=== PATIENT | male | born 1940 | race Caucasian/White ===

== ENCOUNTER 2017-08-31 13:39 | Emergency (ER) | payer SELFPAY ==
[2017-08-31] MEDS ORDERED: SOD CHL 3% *HYPERTONIC* 500ML 500 ML IVS ONE (14:23)
--- NOTE | 2017-08-31 14:23 | CT ---
PROCEDURE: Head HISTORY: head trauma Indication: Same as above Comparison: None Technique: CT of the head was done without intravenous contrast was done in the orthogonal planes. This exam was performed according to our departmental dose-optimization program, which includes automated exposure control, adjustment of the mA and/or KV according to the patient's size and/or use of iterative reconstruction technique. FINDINGS: There is a large left frontoparietal and temporo-occipital acute subdural hemorrhage measuring 3 cm in maximum transverse dimension. A small component of this hemorrhage is also seen along the anterior falx. There is significant contralateral shift of the left cerebral hemisphere at 26 mm. Mass effect on the adjacent bilateral lateral ventricles is noted, without any hydrocephalus at the present time There is probable small focus of probable hemorrhage in the right basal ganglia as well. The infratentorial brain does not show any acute findings The patient is intubated The mastoid air cells are unremarkable . The paranasal sinuses show underlying changes of significant chronic sinusitis . There is no visualization of acute fractures involving the calvarium or the skull base. The findings were discussed with Dr. Garland at 2:21 PM IMPRESSION: There is a large left frontoparietal and temporo-occipital acute subdural hemorrhage measuring 3 cm in maximum transverse dimension. A small component of this hemorrhage is also seen along the anterior falx. There is significant contralateral shift of the left cerebral hemisphere at 26 mm. Mass effect on the adjacent bilateral lateral ventricles is noted, without any hydrocephalus at the present time There is probable small focus of probable hemorrhage in the right basal ganglia as well. Electronically signed by: Zachariah Allen MD 08/31/2017 2:21 PM [facility] Workstation: [id number]
[2017-08-31 14:25] VITALS: TEMP 97.4
[2017-08-31] MEDS ORDERED: MANNITOL 100 GM/500 ML BAG IVS ONE (14:27)
[2017-08-31] MEDS ORDERED: MANNITOL 500 ML IVS ONE (14:30)
--- NOTE | 2017-08-31 14:36 | ED.PDOC ---
History of Present Illness - General Chief Complaint: Head Injury Stated Complaint: head injury Time Seen by Provider: 08/31/17 13:45 Source: RN notes reviewed, Vital Signs reviewed, EMS notes reviewed, family Exam Limitations: clinical condition Additional Information: Per EMS Pt fell from standing height around 0700. Pt was c/o BERMAN. Laid down in chair. Within an hour Patient started vomiting and he became unresponsive. 911 dispatched. On arrival EMS found patient unresponsive and they intubated him and brought him here. Immediate CT Head obtained showing a massive left subdural hemorrhage with contralateral shift. - History of Present Illness Occurred: this morning Severity: severe Method of Injury: fell Associated Symptoms: nausea/vomiting, seizure - reported, other - unconscious Allergies/Adverse Reactions: Allergies NO KNOWN ALLERGY Allergy (Verified 08/31/17 14:39) Review of Systems - Review of Systems Unable to Obtain Due To: intubated Past Medical History (General) - Patient Medical History Hx Other PMH: Yes - Per report. Recent Open Heart Surgery 2 months ago. Taking Coumadin. Physical Exam - Physical Exam General Appearance: Other - Intubated Eye Exam: bilateral abnormal pupil - Nonreactive. Left larger than right. Cardiovascular/Respiratory: normal peripheral pulses, normal breath sounds Mental Status: unresponsive - [place] Coma Score Best Eye Response ([place]): (1) no response Best Verbal Response ([place]): (1) no verbal response - intubated Best Motor Response ([place]): (1) no motor response Progress - Progress Progress: 08/31/17 14:45 Massive intracranial hemorrhage. Patient needs Neurosurgical intervention. Called [facility] for transfer - Dr. Hampton accepted at 1414. Recommended Mannitol and Hypertonic Saline. FPP requested but I was told it would take 30 to 45 minutes to receive. No PCC available. - Results/Orders Results/Orders: CT Head with acute left subdural and midline shift. 08/31/17 13:46 Mechanical Ventilation DAILY 08/31/17 14:09 FRESH FROZEN PLASMA Stat 08/31/17 14:16 CMP [COMPLETE METABOLIC PROFILE] Stat PT [PROTHROMBIN TIME] Stat PTT [PARTIAL THROMBOPLASTIN TIME] Stat 08/31/17 14:23 Sod Chl 3% *Hypertonic* 500Ml [HYPERTONIC Sodium Chloride 3% 500ml] 500 ml IVS ONCE 08/31/17 14:27 Mannitol [Osmitrol] 100 gm IVS ONCE ONE 08/31/17 14:43 ABG [Arterial Blood Gas] Stat Laboratory Results - last 24 hr 08/31/17 14:16 WBC 10.6 RBC 4.37 L Hgb 11.9 L Hct 36.2 L MCV 82.8 MCH 27.2 MCHC 32.9 L RDW 20.1 H Plt Count 314 MPV 6.8 L Absolute Neuts (auto) 8.90 H Absolute Lymphs (auto) 0.80 L Absolute Monos (auto) 0.70 Absolute Eos (auto) 0.10 Absolute Basos (auto) 0.00 Neutrophils % 83.7 H Lymphocytes % 8.0 L Monocytes % 7.0 Eosinophils % 0.8 L Basophils % 0.5 Coags pending. CMP pending. Departure - Departure Clinical Impression: Intracranial hemorrhage, Subdural hemorrhage Time of Disposition: 14:50 Disposition: Discharge to Home or Self Care Condition: Serious Departure Forms: ED Discharge - Pt. Copy, Patient Portal Self Enrollment Referrals: UNKNOWN,PHYSICIAN [Primary Care Provider] - 1-2 Weeks Critical Care Note - Critical Care Note Total Time (mins): 90 - Intubated. Massive Intracranial Hemorrhage Transfer to Outside Facility - Transfer Information Accepting Provider:: Dr. Hampton Accepting Facility: [facility] Reason for Transfer: required specialist not available - Neurosurgery
[2017-08-31 16:20] VITALS: BP 207/125; O2SAT 97
== END 2017-08-31 16:05 | disposition short-term general hospital (02) ==
LOC: ER 13:39
DX: I62.00 Nontraumatic subdural hemorrhage, unspecified (principal); Z79.01 Long term (current) use of anticoagulants
CPT/HCPCS: 36415; 36600; 70450; 80053; 82803; 82805; 85025; 85610; 85730; 94002; 94770; J7799; P9017